=== PATIENT | female | born 1980 | race Hispanic/Latino ===

== ENCOUNTER 2017-12-03 01:44 | Observation (INO) | payer OTHER ==
[2017-12-03] MEDS ORDERED: Ondansetron PF 4 MG/2 ML Vial ONE (02:12)
[2017-12-03] MEDS ORDERED: Ketorolac Tromethamine 30 MG/ML VIAL ONE (02:12)
[2017-12-03 02:24] LABS: #Basophils 0.1 thou/uL (0.0-0.2); #Eosinphils 0.2 thou/uL (0.0-0.7); #Lymphocytes 3.4 thou/uL (1.20-3.40); #Monocytes 0.7 thou/uL (0.11-0.59); #Neutrophils 3.6 thou/uL (1.40-6.50); %Basophils 1.5 % (0.0-1.0); %Eosinophils 2.1 % (0.0-10.0); %Lymphocytes 42.3 % (21.0-51.0); %Neutrophils 45.3 % (42.0-75.0); Hemoglobin 12.9 g/dL (12.0-16.0); Mean Corpuscular HGB CONC 35.6 g/dL (32.0-36.0); Mean Corpuscular Hemoglobin 30.6 pg (27.0-31.0); Mean Corpuscular Volume 86.1 fl (81.0-99.0); Mean Platelet Volume 10.8 fL (7.4-10.4); Platelet Count 204 thou/uL (130-400); RBC Distribution Width 12.7 % (11.5-14.5); Red Blood Cell (RBC) Count 4.21 mill/uL (4.20-5.40)
[2017-12-03 02:30] LABS: ALT (SGPT) 10 U/L (8-55); AST (SGOT) 17 U/L (5-34); Albumin 4.3 g/dL (3.5-5.0); Alkaline Phosphatase 47 U/L (40-150); Anion Gap 14 mmol/L (10-20); BUN (Urea Nitrogen) 14 mg/dL (7.0-18.7); Bilirubin, Total 0.5 mg/dL (0.2-1.2); Calc. Creatinine Clearance 0 mL/min (70-130); Calcium 9.6 mg/dL (7.8-10.44); Carbon Dioxide 23 mmol/L (22-29); Chloride 107 mmol/L (98-107); Estimated GFR-MDRD 82; Glucose 93 mg/dL (70-105); Lipase 34 U/L (8-78); Potassium 3.9 mmol/L (3.5-5.1); Protein, Total 7.3 g/dL (6.0-8.3); Sodium 140 mmol/L (136-145)
[2017-12-03 03:31] LABS: BHCG - Serum Negative (NEGATIVE); Pregs Control Background? CLEAR/WHITE (CLR/WHITE); Pregs Control Bar Appear? YES (CONTROL BAR)
[2017-12-03] MEDS ORDERED: Morphine 5 MG/ML SYRINGE ONE (03:54)
[2017-12-03 03:58] LABS: Bilirubin Negative (Negative); Blood, Urine Trace (Negative); Clarity Clear (Clear); Glucose, Urine (Dipstick) Negative (Negative); Leukocyte Negative (Negative); Nitrite Negative (Negative); Protein, Urine (Dipstick) Negative (Neg-Trace); Specific Gravity, Urine 1.025 (1.005-1.030); Urobilinogen 0.2 mg/dL (0.2-1.0)
[2017-12-03 04:00] LABS: Pregnancy Test - Urine (BHCG) Negative (Negative); Pregu Control Background? CLEAR/WHITE (CLR/WHITE); Pregu Control Bar Appear? YES (CONTROL BAR); Specific Gravity 1.025 (1.002-1.036)
[2017-12-03 04:02] LABS: Bacteria/HPF None Seen HPF (None Seen); Hyaline Casts/LPF 0-3 HYALINE CAST LPF (0-3 Hyaline); RBC/HPF 0-3 HPF (0-3); Squamous Epithelial 0-3 HPF (0-3); WBC/HPF 0-3 HPF (0-3)
--- NOTE | 2017-12-03 07:07 | HP ---
DATE OF ADMISSION: 12/03/2017 ADMITTING PHYSICIAN: Mustapha Serrano M.D. CHIEF COMPLAINT: Sudden onset abdominal pain. HISTORY OF PRESENT ILLNESS: Ms. Cool is a 36-year-old G2, P2-0-0-2 with a certain last menstrual period of 11/07/2017 who presents with a history of sudden onset left lower quadrant pain starting at 1:00 a.m. She states this was associated with nausea, but she denies vomiting, fever or chills. She states that her last menstrual period in October was normal and that her cycles last 7-10 days. PAST OBSTETRICAL HISTORY: Includes 2 previous sections at term. PAST MEDICAL HISTORY: Hypothyroidism. CURRENT MEDICATIONS: Synthroid 50 mcg daily. PAST SURGICAL HISTORY: x2 as above, tubal ligation and laparoscopic treatment of ectopic pregnancies. ALLERGIES: Include BACTRIM, which she says gives her a rash. SOCIAL HISTORY: She denies tobacco or alcohol use. FAMILY HISTORY: Remarkable for cervical cancer in her grandmother. REVIEW OF SYSTEMS: Positive for abdominal pain and nausea. She denies fever, chills, flank pain, vaginal bleeding. PHYSICAL EXAMINATION: VITAL SIGNS: Here show a blood pressure of 94/57, pulse 63, respirations 18, temperature 98.4 with an O2 saturation of 98%. LUNGS: Clear to auscultation. CARDIOVASCULAR: Regular rate and rhythm. ABDOMEN: Nondistended. There is tenderness to palpation in the left lower quadrant, although there is no rebound. PELVIC EXAMINATION: Deferred. LABORATORY DATA: CBC on admission, white count 8.0, hemoglobin and hematocrit are 12.9 and 36.2, platelet count 204. Sodium 140, potassium 3.9, chloride 107 , CO2 23, creatinine is 0.79. Urinalysis: Specific gravity 1.025 with negative leukocytes, negative nitrites, negative protein, negative glucose. Serum test is negative. IMAGING: Ultrasound of the pelvis shows unremarkable uterus and cervix. Her right ovary is unremarkable with normal blood flow. Her left ovary is not clearly identified, but a complex mass measuring 7 x 3.2 x 3 cm is seen and there is fluid seen in the pelvis and right upper quadrant. I did speak with Sowmya, the cryptologic technician who did the scan and she does describe a flow into the mass and she did not feel like this was suspicious for torsion. ASSESSMENT: Adnexal mass, most consistent with a hemorrhagic cyst, less likely ovarian torsion. PLAN: As the patient has required morphine for pain control, at this time I will put her in for 23-hour observation and treat for pain. She will also get serial CBCs to watch for any evidence of intraperitoneal bleeding. The patient was not comfortable going home at this time and is very satisfied with this plan. I will relay this information to Dr. Quintana who will be coming on shift this morning. ANGELAD
[2017-12-03] MEDS ORDERED: HYDROcodone/Acetaminophen 7.5/325 mg Tablet PO PRN ×2 (07:08→07:30)
[2017-12-03] MEDS ORDERED: Promethazine HCl 12.5 MG in Sodium Chloride 0.9% 50 ML IVPB PRN (07:11)
[2017-12-03 07:34] VITALS: BMI 22.4
[2017-12-03] MEDS: Dextrose 5%-Lactated Ringers 1,000 ML IV SCH ×2 (07:37→15:25)
--- NOTE | 2017-12-03 07:57 | ULT ---
PRELIMINARY REPORT/[facility]/EMERGENCY AFTER HOURS PROCEDURE: Addendum created by Jonny Alvarado MD on 12/03/2017 4:36 AM Central Time ([place] & [place]) THIS REPORT CONTAI NS FINDINGS THAT MAY BE CRITICAL TO PATIENT CARE. The findings were verbally communicated via telepho ne conference with ETIENNE BOYCE at 4:35 AM CDT on 12/03/2017. The findings were acknowledged and un derstood. Initial Report created on 12/03/2017 4:16 AM Central Time ([place] & [place]) EXAM: US Pelvis Complete, Transabdominal CLINICAL HISTORY: 36 years old, female; Pain; Other: Sudden onset llq pain 2-3hrs ago TECHNIQUE: Real-time transabdominal pelvic ultrasound (complete) with image documentation. COMPARISON: No relevant prior studies available. FINDINGS: Uterus/cervix: Unremarkable. Normal endometrial stripe thickness. No myometrial mass. Right ovary: Unremarkable. No mass. Normal blood flow. Left ovary: Not clearly identified. Complex mass measuring up to 7 x 3.2 x 3.0 cm Free fluid: Small free fluid in the pelvis and right upper quadrant. IMPRESSION: Complex left adnexal mass. Left ovary not identified. Torsion not excluded Fluid in the pelvis and right upper quadrant as described Thank you for allowing us to participate in the care of your patient. Dictated and Authenticated by: Jonny Alvarado MD 12/03/2017 4:16 AM Central Time ( & [place]) FINAL REPORT EMERGENCY AFTER HOURS PELVIC ULTRASOUND INCLUDING TRANSABDOMINAL AND TRANSVAGINAL AND VASCULAR DUPLEX WITH COLOR AND SPECTRAL DOPPLER IMAGING: Date: 12/03/17 Time: 0303 hours FINDINGS: Large, complex left adnexal mass, measuring 3.0 x 3.2 x 7.0 cm, without a normal appearing ovary seen . There was some blood flow documented within a portion of this large left adnexal mass, but not thro ughout the entire mass. This certainly could represent an enlarged torus ovary. Unremarkable uterus. IMPRESSION: Complex left adnexal mass. Left ovarian torsion is a strong concern. Minimal free fluid in the pelvis and right upper quadrant. Report in agreement with preliminary report given on-call by Jayla. POS: [facility]
[2017-12-03] MEDS: HYDROcodone/Acetaminophen 7.5/325 mg Tablet PO PRN ×2 (12:39→16:56)
[2017-12-03 13:00] LABS: #Eosinphils 0.1 thou/uL (0.0-0.7); #Lymphocytes 1.7 thou/uL (1.20-3.40); #Monocytes 0.6 thou/uL (0.11-0.59); #Neutrophils 4.6 thou/uL (1.40-6.50); %Basophils 0.7 % (0.0-1.0); %Eosinophils 1.1 % (0.0-10.0); %Lymphocytes 24.1 % (21.0-51.0); %Monocytes 8.5 % (0.0-10.0); %Neutrophils 65.7 % (42.0-75.0); Hemoglobin 11.3 g/dL (12.0-16.0); Mean Corpuscular HGB CONC 33.8 g/dL (32.0-36.0); Mean Corpuscular Hemoglobin 30.9 pg (27.0-31.0); Mean Corpuscular Volume 91.3 fl (81.0-99.0); Mean Platelet Volume 9.3 fL (7.4-10.4); Platelet Count 174 thou/uL (130-400); RBC Distribution Width 13.9 % (11.5-14.5); Red Blood Cell (RBC) Count 3.66 mill/uL (4.20-5.40)
[2017-12-03 17:02] VITALS: BP 90/54; TEMP 98
[2017-12-03 18:22] LABS: #Eosinphils 0.1 thou/uL (0.0-0.7); #Lymphocytes 1.8 thou/uL (1.20-3.40); #Monocytes 0.6 thou/uL (0.11-0.59); %Basophils 0.6 % (0.0-1.0); %Eosinophils 1.7 % (0.0-10.0); %Lymphocytes 23.5 % (21.0-51.0); %Monocytes 8.2 % (0.0-10.0); %Neutrophils 66.1 % (42.0-75.0); Hemoglobin 12.2 g/dL (12.0-16.0); Mean Corpuscular HGB CONC 34.3 g/dL (32.0-36.0); Mean Corpuscular Hemoglobin 31.7 pg (27.0-31.0); Mean Corpuscular Volume 92.6 fl (81.0-99.0); Mean Platelet Volume 9.8 fL (7.4-10.4); Platelet Count 198 thou/uL (130-400); Red Blood Cell (RBC) Count 3.84 mill/uL (4.20-5.40); White Blood Cell (WBC) Count 7.5 thou/uL (4.8-10.8)
--- NOTE | 2017-12-04 05:05 | DIS ---
DATE OF ADMISSION: 12/03/2017 DATE OF DISCHARGE: 12/03/2017 DIAGNOSIS: Suspected hemorrhagic ovarian cyst. HOSPITAL COURSE: The patient was placed in observation this morning for serial H&H measurements and exams for suspected hemorrhagic cyst. Throughout the course of the day, her H&H remained stable and her pain improved and regained her appetite. She required 2 doses of Alba during the day. She was meeting all milestones for discharge. FOLLOWUP: Follow up with Dr. Ellison in 4 weeks for repeat ultrasound or before then if needed. DIET: Regular. ACTIVITIES: Pelvic rest until pain improves. MEDICATIONS: Resume all home medications. She was given a prescription for Tylenol #3 (20 tabs). INSTRUCTIONS: The patient was instructed to call the office or return to the emergency room for severe worsening of pain or other concerns. JO ANN
== END 2017-12-03 18:48 | disposition home or self-care (01) ==
LOC: ERS 01:44 → SCSER 05:14 → 3SW 06:50
PROVIDERS: ADMIT Obstetrics & Gynecology; ATTEND Obstetrics & Gynecology
DX: N85.8 Other specified noninflammatory disorders of uterus (principal); E03.9 Hypothyroidism, unspecified; Z88.1 Allergy status to other antibiotic agents; Z79.899 Other long term (current) drug therapy
CPT/HCPCS: 36415; 76856; 80053; 81003; 81015; 81025; 83690; 84703; 85025; 93976; 96361; 96374; 96375; J2270; G0378; J1885; J2405

== ENCOUNTER 2019-03-15 15:37 | Outpatient (CLI) | payer OTHER ==
--- NOTE | 2019-03-15 16:37 | MRI ---
Exam: MRI cervical spine without contrast HISTORY: Neck pain, radiating down the right upper extremity x2 weeks. COMPARISON: None FINDINGS: Appropriate T1 marrow signal intensity of the cervical vertebrae. Cervical spine vertebral body heig ht is maintained. No fracture. Appropriate T1 marrow signal intensity of the vertebrae. Vertebral body height is maintained. No fracture. Straightening of normal cervical lordosis may be due to patie nt position, muscle spasm. No significant STIR hyperintensity to suggest vertebral body edema or ligamentous injury Visualized brain parenchyma, cervicomedullary junction, cervical cord and the upper thoracic cord hav e a normal size and signal intensity C2-C3: No significant central canal stenosis. Bilaterally neural foramina are patent C3-C4: No significant central canal stenosis. Bilaterally, neural foramina are patent C4-C5: Central/right paracentral disc osteophyte complex. Minimal deformity the midline cervical cord , without cord hyperintensity. Mild central canal stenosis. Bilaterally, neural foramina are patent C5-C6: Broad-based discussed by complex with a central component. Central and right paracentral subar achnoid space is effaced. Mild flattening and deformity the cervical cord. Mild to moderate central canal stenosis. Bilaterally, neural foramina are patent. C6-C7: Central disc protrusion abuts the thecal sac. Subarachnoid space is maintained. Minimal indent ation upon the cervical cord. Mild central canal stenosis. Bilaterally, neural foramina are patent C7-T1: No significant central canal stenosis or significant neural foraminal narrowing IMPRESSION: Degenerative changes of the cervical spine as detailed above Transcribed Date/Time: 03/15/2019 4:58 PM
== END 2019-03-15 15:38 | disposition home or self-care (01) ==
LOC: SCSMRI 15:37
PROVIDERS: ATTEND Family Medicine
DX: M47.22 Other spondylosis with radiculopathy, cervical region (principal)
CPT/HCPCS: 72141

== ENCOUNTER 2020-10-20 13:51 | Outpatient (CLI) | payer OTHER | END 2020-10-20 13:52 | disposition home or self-care (01) | LOC: DTY/OP 13:51 | PROVIDERS: ATTEND Family Medicine | DX: Z00.00 Encounter for general adult medical examination without abnormal findings (principal) | CPT/HCPCS: 97802 ==

== ENCOUNTER 2020-11-24 09:55 | Outpatient (CLI) | payer OTHER | END 2020-11-24 09:56 | disposition home or self-care (01) | LOC: BICMAMMO 09:55 | PROVIDERS: ATTEND Obstetrics & Gynecology | DX: N64.4 Mastodynia (principal) | CPT/HCPCS: 77066; G0279 ==

== ENCOUNTER 2021-11-11 14:17 | Outpatient (CLI) | payer BC | END 2021-11-11 14:18 | disposition home or self-care (01) | LOC: BICULT 14:17 | PROVIDERS: ATTEND Family Medicine | DX: E07.89 Other specified disorders of thyroid (principal) | CPT/HCPCS: 76536 ==

== ENCOUNTER 2023-02-28 09:57 | Outpatient (CLI) | payer BC | END 2023-02-28 09:58 | disposition home or self-care (01) | LOC: BICMAMMO 09:57 | PROVIDERS: ATTEND Obstetrics & Gynecology | DX: N63.10 Unspecified lump in the right breast, unspecified quadrant (principal) | CPT/HCPCS: 77066; G0279 ==

== ENCOUNTER 2023-09-08 08:35 | Outpatient (CLI) | payer BC ==
[2023-09-08 09:38] LABS: #Eosinphils 0.1 10x3/uL (0.0-0.5); #Monocytes 0.5 10x3/uL (0.0-1.1); #Neutrophils 3.3 10x3/uL (1.5-8.4); %Basophils 0.5 % (0.0-2.0); %Eosinophils 0.9 % (0.0-6.0); %Lymphocytes 29.9 % (18.0-47.0); %Monocytes 8.3 % (0.0-10.0); %Neutrophils 60.2 % (40.0-75.0); Hematocrit 36.5 % (34.9-44.5); Hemoglobin 12.3 g/dL (12.0-15.5); Mean Corpuscular HGB CONC 33.7 g/dL (32.0-36.0); Mean Corpuscular Hemoglobin 30.8 pg (27.0-33.0); Mean Corpuscular Volume 91.5 fl (81.6-98.3); Mean Platelet Volume 11.1 fl (7.4-10.4); Platelet Count 303 10x3/uL (150-450); RBC Distribution Width 14.6 % (11.5-14.5); Red Blood Cell (RBC) Count 3.99 10x6/uL (3.90-5.03); White Blood Cell (WBC) Count 5.5 10x3/uL (3.5-10.5)
[2023-09-08 09:53] LABS: Anion Gap 12 mmol/L (10-20); BUN (Urea Nitrogen) 13 mg/dL (7.0-18.7); Calc. Creatinine Clearance 0 mL/min (70-130); Calcium 9.4 mg/dL (7.8-10.44); Carbon Dioxide 26 mmol/L (22-29); Chloride 106 mmol/L (98-107); Estimated GFR 90; Glucose 85 mg/dL (70-105); Potassium 3.8 mmol/L (3.5-5.1); Sodium 140 mmol/L (136-145)
== END 2023-09-08 08:36 | disposition home or self-care (01) ==
LOC: LABBT 08:35
PROVIDERS: ATTEND Specialist
DX: Z01.818 Encounter for other preprocedural examination (principal); K42.9 Umbilical hernia without obstruction or gangrene
CPT/HCPCS: 71046; 80048; 85025